=== PATIENT | male | born 1980 | race Caucasian/White ===

== ENCOUNTER → 2022-07-07 | Outpatient (REF) | payer OTHER ==
[~2022-07-07] MED LIST: IBUPOTC PO; KEPP250T5 PO; LISI5TAB11 PO; OMEP1CAP73 PO
== END ==
LOC: M LAB REF 12:03
PROVIDERS: ATTEND Internal Medicine
DX: G40.89 Other seizures (principal); Z79.899 Other long term (current) drug therapy

== ENCOUNTER → 2022-12-21 | Outpatient (REF) | payer OTHER | LOC: M LAB REF 11:14 | PROVIDERS: ATTEND Physician Assistant | DX: Z20.828 Contact with and (suspected) exposure to other viral communicable diseases (principal); J06.9 Acute upper respiratory infection, unspecified ==

== ENCOUNTER → 2023-01-04 | Outpatient (REF) | payer OTHER | LOC: M LAB REF 11:46 | PROVIDERS: ATTEND Internal Medicine | DX: G40.89 Other seizures (principal) ==

== ENCOUNTER → 2024-04-08 | Outpatient (CLI) | payer OTHER ==
[2024-04-08 19:25] LABS: RHEUMATOID FACTOR QUANT 5.1 IU/ML (<14)
== END ==
LOC: M WUC 15:01
PROVIDERS: ATTEND Internal Medicine
DX: M48.02 Spinal stenosis, cervical region (principal); G62.9 Polyneuropathy, unspecified

== ENCOUNTER → 2024-05-10 | Outpatient (CLI) | payer OTHER | LOC: M PLARAD 10:00 | PROVIDERS: ATTEND Internal Medicine | DX: M54.2 Cervicalgia (principal) ==